=== PATIENT | male | born 1995 | race Caucasian/White ===

== ENCOUNTER 2022-08-08 18:35 | Emergency (ER) | payer OTHER ==
[2022-08-08] MEDS ORDERED: Tetracaine HCl/PF 0.5% 4 ML Bottle EYELF STA (19:36)
[2022-08-08] MEDS ORDERED: Diphtheria,Pertussis(Acell),Tetanus Vaccine 0.5 ML Syringe IM ONE (19:36)
[2022-08-08] MEDS ORDERED: Ciprofloxacin 0.3% Ophth Soln 2.5 ML Bottle EYEBOTH STA (20:49)
== END 2022-08-08 21:30 | disposition home or self-care (01) ==
LOC: MW.ED 18:35
DX: T15.02XA Foreign body in cornea, left eye, initial encounter (principal); Z23 Encounter for immunization
CPT/HCPCS: 90471; 90715; 99283; A9270; J3490